=== PATIENT | male | born 1960 | race Two or more races ===

== ENCOUNTER 2016-07-16 15:10 | Inpatient (IN) ==
--- NOTE | 2016-07-16 15:31 | EKG Report ---
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
[2016-07-16] MEDS ORDERED: SODIUM CHLORIDE 0.9% 1,000 ML IV STA (15:38)
[2016-07-16] MEDS ORDERED: NITROGLYCERIN SL 0.4 MG TABLET SL STA (15:39)
[2016-07-16] MEDS ORDERED: ASPIRIN 325 MG TABLET PO STA (15:39)
[2016-07-16] MEDS ORDERED: ASPIRIN 325 MG TABLET ONE (15:40)
[2016-07-16 15:44] LABS: Basophils # 0.1 10*3/uL (0.0-0.2); Basophils % 0.5 % (0.0-0.8); Eosinophils # 0.1 10*3/uL (0.0-0.87); Eosinophils % 0.7 % (0.00-10.9); Hematocrit 47.5 VOL% (42.0-52.0); Hemoglobin 15.9 GM/DL (14.0-18.0); Immature Granulocytes % 0.5 %; Immature Granulocytes Absolute 0.06 #; Lymphocytes # 2.4 10*3/uL (1.4-4.0); Lymphocytes % 19.7 % (21.2-54.2); Mean Corpuscular HGB Conc 33.5 GM/DL (32-36); Mean Corpuscular Hemoglobin 31 PG (27-34); Monocytes # 0.8 10*3/uL (0.11-0.8); Monocytes % 6.6 % (1.7-12.7); Neutrophils # 8.9 10*3/uL (1.4-7.4); Platelet Count 262 T/CUMM (130-400); Red Blood Count 5.11 MC/CUMM (3.8-5.5); Red Cell Distribution Width 13.7 % (9.3-17.3); White Blood Count 12.3 T/CUMM (4-12)
[2016-07-16] MEDS ORDERED: NITROGLYCERIN SL 0.4 MG TABLET SL PRN (15:45)
[2016-07-16] MEDS ORDERED: NITROGLYCERIN SL 0.4 MG TABLET SL ONE ×2 (15:47→15:48)
[2016-07-16 15:50] LABS: INR 1.1; PT Patient Result 11.2 SECS; Partial Thromboplastin Time 26.1 SECS (0-40)
[2016-07-16] MEDS ORDERED: METOPROLOL TARTRATE 5 MG/5 ML VIAL IV ONE (15:50)
[2016-07-16] MEDS ORDERED: HEPARIN 5,000 UNIT/1 ML VIAL ONE (15:51)
--- NOTE | 2016-07-16 15:54 | Emergency Department Note ---
Merrick Goncalves Hilary, am scribing for, and in the presence of, Jose Stacy Jr., MD 15:29. Regis Goncalves Marvin Jr., MD, personally performed the services described in this documentation, ascribed by Nichelle Sin in my presence, and it is both accurate and complete [id number] . Arrival - Arrival Chief Complaint: Chest Pain Stated Complaint: chest pain ED Nursing Triage Note: C/O HAVING CHEST PAIN X 1 HOUR., + SOB , +NAUSEA., + DIAPHRESIS , STATES THE PAIN IS RADIATING TO THE ARMS AND THE NECK , EKG OBTAINED AT TIME OF TRIAGE Mode of Arrival: Ambulatory Limitations: No Limitations Source: Patient, RN Notes Reviewed - History of Present Illness HPI Narrative: Pt is a 56 y/o male presenting to the ED with c/o chest pain which onset around 1330 today. Pt reports that he just finished eating and went to the bathroom when he started to feel chest pains, nausea, shortness of breath and sweating. He states that the pain comes and goes but is a severe stabbing pain that he cant tell whether it is inside our outside. Pt confirms that he has not been to the doctor in about 3 years. No other complaints or problems stated in the ED. Onset (ago): hour(s) Consistency: intermittent Severity: severe Severity scale (1-10): 4 Quality: stabbing Allergies/Adverse Reactions: Allergies Allergy/AdvReac Type Severity Reaction Status Date / Time Penicillins Allergy Unknown/Unable Verified 07/16/16 15:14 to obtain Home Medications: Home Medications Medication Instructions Recorded Confirmed Type No Known Home Medications [No 10/01/15 07/16/16 History Known Home Medications] Review of System - Review of System 12 point system: reviewed and no additional remarkable complaints except as stated - Review of System Constitutional: Present: diaphoresis Respiratory: Present: respiratory distress (SOB) Cardiovascular: Present: chest pain Gastrointestinal: Present: nausea Medical,Surgical,& Family Hx - Social History Smoking Status: Never smoker Frequency of Alcohol Use: Occasionally Type of Drug Use: None Exam Physical Examination: General: Well-developed well-nourished, no apparent distress. Head: Normocephalic, atraumatic. Eyes: PERRLA, EOMI. Nose: No obvious acute deformities or discharge. Mouth: No obvious acute injury. Neck: Full range of motion without obvious pain. No midline tender to palpation. Lymphatic: no significant lymphadenopathy noted. Lungs: Clear to auscultation bilaterally, normal and equal air movement bilaterally, no obvious rales or wheezing. Heart: regular rate and rhythm, no obvious mummers. Abdomen: Soft nontender, nondistended, normal active bowel sounds. Skin: Cool, moist, patient says this is much better than a little bit ago Musculoskeletal: No gross deformities. Neurological: No focal findings, cranial nerves II through XII grossly normal. Psychiatric: Anxious : Deferred Vital Signs: Vital Signs Temperature 98.1 F 07/16/16 15:27 Pulse Rate 82 07/16/16 15:27 Respiratory Rate 20 07/16/16 15:27 Blood Pressure 183/127 07/16/16 15:27 O2 Sat by Pulse Oximetry 100 07/16/16 15:12 Course Course Narrative: Differential diagnosis, acute IA, chest pain - Reevaluation(s) Reevaluation #1: I called Dr. Rivera and texted him the EKG. He call back right away and says this EKG although not meeting criteria for ST elevation IA is very suggestive of ischemia. He will take him to the [facility] now. Time: 15:30 Results - Labs CBC & BMP: 07/16/16 15:23 - EKG EKG results: interpreted by BERTRAND (Heart rate 88, irregular rhythm with no obvious P waves. ST elevation in anterior and lateral leads consistent with early repolarization but worrisome for acute IA. No reciprocal changes) - Diagnostic Findings Procedure: Chest x-ray: image reviewed by me (Mediastinum not widened, mild cardiomegaly,) Critical Care Time Critical Care Time: Yes Total Critical Care Time: 30 (Acute IA) Disposition Clinical Impression: ST elevation IA (STEMI), Elevated blood pressure reading Case discussed with: patient, patient's family Disposition: Still a Patient Condition: Stable Time of Disposition: 15:38
[2016-07-16] MEDS ORDERED: HEPARIN/NACL 0.9% 2 UNITS/ML 1,000 ML IV ONE (15:55)
[2016-07-16] MEDS ORDERED: LIDOCAINE 1% 20 ML VIAL ONE (15:55)
[2016-07-16 16:01] LABS: Alanine Aminotransferase 46 U/L (16-61); Albumin 3.8 G/DL (3.4-5.0); Alkaline Phosphatase 78 U/L (45-117); Aspartate Amino Transferase 30 U/L (0-37); Blood Urea Nitrogen 9 MG/DL (7-18); Glucose 125 MG/DL (74-106); Magnesium 1.9 MG/DL (1.8-2.4); Osmolality,Calculated 285.8 MOS/KG (273-304); Potassium 4.2 MMOL/L (3.5-5.1); Sodium 144 MMOL/L (136-145); Total Protein 7.3 G/DL (6.4-8.3)
[2016-07-16] MEDS ORDERED: fentaNYL 100 MCG/2 ML VIAL ONE (16:07)
[2016-07-16] MEDS ORDERED: MIDAZOLAM 2 MG/2 ML VIAL ONE (16:07)
[2016-07-16] MEDS ORDERED: HEPARIN 1,000 UNIT/1 ML VIAL IV STA (16:10)
[2016-07-16] MEDS ORDERED: NITROGLYCERIN DRIP 50 MG/250 ML BOTTLE IV ONE (16:10)
[2016-07-16] MEDS ORDERED: METOPROLOL TARTRATE 5 MG/5 ML VIAL IV STA (16:10)
[2016-07-16] MEDS ORDERED: VERAPAMIL 5 MG/2 ML VIAL ONE (16:11)
[2016-07-16] MEDS ORDERED: ONDANSETRON 4 MG/2 ML VIAL IV PRN ×2 (16:28)
[2016-07-16] MEDS ORDERED: MAGNESIUM SULF RIDER 4 GM in PREMIX 1 EACH IV PRN (16:28)
[2016-07-16] MEDS ORDERED: MAGNESIUM SULF RIDER 2 GM in PREMIX 1 EACH IV PRN (16:28)
[2016-07-16] MEDS ORDERED: ACETAMINOPHEN 325 MG TABLET PO PRN (16:28)
[2016-07-16] MEDS ORDERED: ZALEPLON 5 MG CAPSULE PO PRN ×2 (16:28)
[2016-07-16] MEDS ORDERED: POTASSIUM CHLORIDE 20 MEQ TABLET PO ONE (16:35)
[2016-07-16] MEDS ORDERED: FUROSEMIDE 40 MG/4 ML VIAL IV ONE (16:35)
--- NOTE | 2016-07-16 16:35 | XRay Report ---
Exam: XR chest 1V portable Indication: Midline chest pain, cardiomegaly Comparison study: None Findings: Cardiac silhouette is mildly enlarged. There is also mild central perihilar interstitial prominence which is of uncertain significance but may represent underlying scarring changes or atelectasis. Punctate subcentimeter calcific nodular densities in the perihilar regions are also noted and most compatible with sequela of prior granulomatous disease. There is no focal consolidation, pneumothorax or pleural effusion identified. Impression: Cardiomegaly with suggestion of underlying interstitial scarring versus atelectasis and evidence of prior granulomatous disease. PROCEDURE INTERPRETED AT [facility] DEPARTMENT OF RADIOLOGY Final Report Signed by: Jose L Estevez
--- NOTE | 2016-07-16 16:37 | History and Physical Update ---
Sedation H&P Update - History and Physical H&P was reviewed, the patient examined and there: are no changes in the patients condition since last H&P was completed. - Dictation Physical: refer to H&P completed by admitting physician - Physical Exam Mental Status: alert and oriented Heart: regular rate and rhythm Lung: clear to auscultation Abdomen: within normal limits Vitals: other (Severely uncontrolled blood pressure) - Sedation Plan for Sedation: moderate Patient Consent: Procedure disscussed with patient and patinet has consented., Risks and benefits were discussed with patient,including infection,, bleeding, injury to surrounding structures, seizure, temporary nerve, Patient understands and accepts potential risks/benefits and agrees to, proceed. ASA Class: IV Airway Assessment: Class IV: Only hard palate visible
--- NOTE | 2016-07-16 16:41 | Cardiology History & Physical ---
Assessment and Plan - Time spent with patient Time spent with patient: Less than 30 minutes (1) ST elevation Status: Acute Current Visit: Yes (2) Hypertensive emergency Status: Acute Current Visit: Yes (3) Morbid exogenous obesity Status: Chronic Current Visit: Yes History of Present Illness Chief complaint: Chest pain History of present illness: Mr. Aviles is a 56 year old male who claims no past medical history. He even states that he checks his blood pressure on a frequent basis at the request of his family and friends because he "has to have blood pressure problems." He states it is always good. He has had a headache and been feeling poor now for the last week. Today he was eating at a friend's house felt like he had to go to the restroom he went up went to the restroom after weighing the restroom, "BOOM" severe 10 out of 10 chest pressure with diaphoresis and nausea. It escalated and was 10 out of 10 he came to the emergency room was found to have severely uncontrolled blood pressure had an EKG was sent to me by Dr. Stacy that had anterolateral ST elevation that was less than a millimeter but had severe con convexity to the morphology of the ST segments. He was given nitroglycerin and helped his pain significantly was also given aspirin. I arrived saw examined and evaluated the patient at risk benefits and options discussed with him he was willing to proceed. We gave him 7000 units of intravenous heparin and went emergently for left heart catheterization selective coronary angiography and possible percutaneous coronary mention with a right radial access. He has disease as described in his cath report. Is very difficult imaging due to body habitus. The patient's pain was down to 2 out of 10 his blood pressure remained elevated. We used minimal contrast he had a markedly elevated left ventricular end-diastolic pressure of 30 mmHg his cardiac silhouette was enlarged look like he was primarily right-sided. We will monitor in the ICU and get CT scan of the chest today. We will also get venous Dopplers Home Medications Medication Instructions Recorded Confirmed Type No Known Home Medications [No 10/01/15 07/16/16 History Known Home Medications] Allergies Allergy/AdvReac Type Severity Reaction Status Date / Time Penicillins Allergy Unknown/Unable Verified 07/16/16 15:14 to obtain - Constitutional Constitutional: Present: fatigue, lethargy, malaise, stops breathing during sleep, weight gain. Absent: anorexia, chills - EENT Eyes: Present: blurry vision Ears: Absent: decreased hearing Nose, mouth and throat: Absent: dysphagia, epistaxis, lip swelling, nasal congestion - Cardiovascular Cardiovascular: Present: chest pain at rest, dyspnea on exertion. Absent: chest pain with activity - Respiratory Respiratory: Present: dyspnea on exertion, snoring - Gastrointestinal Gastrointestinal: Absent: abdominal pain, bloating - Genitourinary Genitourinary: Absent: difficulty urinating, hematuria - Musculoskeletal Musculoskeletal: Absent: arthralgias, joint swelling - Neurological Neurological: Absent: abnormal gait, disequilibrium, paresthesias, radicular pain - Psychiatric Psychiatric: Absent: anxiety, depression - Endocrine Endocrine: Absent: cold intolerance, heat intolerance - Hematologic/Lymphatic Hematologic/Lymphatic: Absent: easy bleeding, easy bruising Medical,Surgical,& Family Hx - Social History Smoking Status: Never smoker Frequency of Alcohol Use: Occasionally Type of Drug Use: None Marital Status: Lives With:: Alone Functional capacity: independent ambulation (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[employer]) Cardiology Physical Exam - Constitutional Vitals: Vital Signs Temp Pulse Resp BP Pulse Ox 98.1 F 82 20 183/127 100 07/16/16 15:27 07/16/16 15:27 07/16/16 15:27 07/16/16 15:27 07/16/16 15:12 Intake and Output 07/16/16 07/16/16 07/16/16 07:59 15:59 23:59 Other: Weight 145.15 kg Patient Weight 07/16/16 23:59 Weight 145.15 kg General appearance: morbidly obese - Head Head exam: Present: normal inspection - Eye Eye exam: Present: EOMI Pupils: Present: ROSA M - ENT ENT exam: Present: other (ASA IV airway) - Respiratory Respiratory exam: Present: clear to auscultation bilaterally - Cardiovascular Cardiovascular exam: Present: regular rate and rhythm (Tones very distant indistinct) - GI/Abdominal GI/Abdominal exam: Present: normal bowel sounds - Neurological Exam Neurological exam: Present: alert, oriented X3 - Psychiatric Psychiatric exam: Present: normal affect, normal mood, anxious - Skin Skin exam: Present: normal color, warm Result/EKG - Labs CBC & BMP: 07/16/16 15:23 07/16/16 15:23 Labs: Laboratory Results - last 24 hr 07/16/16 07/16/16 07/16/16 15:23 15:23 15:23 WBC 12.3 H RBC 5.11 Hgb 15.9 Hct 47.5 MCV 93.0 MCH 31 MCHC 33.5 RDW 13.7 Plt Count 262 MPV 12.0 Neut % (Auto) 72.0 Lymph % (Auto) 19.7 L [place] % (Auto) 6.6 Eos % (Auto) 0.7 Baso % (Auto) 0.5 Neut # (Auto) 8.9 H Lymph # (Auto) 2.4 [place] # (Auto) 0.8 Eos # (Auto) 0.1 Baso # (Auto) 0.1 Immature Gran % 0.5 Nucleated RBC % 0.0 Immature Gran # 0.06 Nucleated RBCs # 0.00 INR 1.1 PT Patient/Control Mix 11.2 Circ Anticoag PTT 26.1 Sodium 144 Potassium 4.2 Chloride 105 Carbon Dioxide 30 Anion Gap 13.2 BUN 9 Creatinine 1.00 GFR Calculation 126 BUN/Creatinine Ratio 9.00 Glucose 125 H Calculated Osmolality 285.8 Calcium 9.0 Magnesium 1.9 Total Bilirubin 0.60 AST 30 ALT 46 Alkaline Phosphatase 78 Total Creatine Kinase 202 CK-MB (CK-2) 1.3 Troponin I 0.070 H Total Protein 7.3 Albumin 3.8 Globulin 3.5 Albumin/Globulin Ratio 1.0 L - EKG EKG results: interpreted by me (Sinus rhythm with APCs and ST elevation with con convexity in the anterolateral leads V1 through V6 suggestive of injury) Quality Measures - VTE Contraindication to Pharmacological VTE Prophylaxis: Already on Theraputic Agent , No Prophylaxis Needed
--- NOTE | 2016-07-16 16:50 | Cardiac Catheterization ---
Date of Procedure:: 07/16/16 Pre-op Diagnosis: ST elevation myocardial infarction Post-op diagnosis: other (Hypertensive emergency and moderate two-vessel coronary artery disease, decompensated heart failure, obstructive sleep apnea) Procedure: Procedures: 1. Left heart catheterization resting hemodynamics 2. Selective left and right coronary angiography After signed an informed consent was obtained, the patient was prepped and draped in standard fashion for right radial access. Time out was recorded. 0.5 mL of 1% lidocaine were infiltrated in the skin and subcutaneous tissue overlying the right radial artery and Seldinger technique was utilized with a Angiocath to obtain access to the right radial artery. A [employer] glide wire was then advanced into the midforearm under fluoroscopic guidance. The Angiocath was removed and a 6 Egyptian Terumo glide sheath was placed over the Glidewire. The sheath was aspirated and flushed and then 5 mg of verapamil and 200 g of nitroglycerin were given through the sheath. At this time an 035 J-wire was used to guide a [place] 6 Egyptian catheter into the central aorta across the aortic valve and into the ventricle. A 10 mL injection of contrast was used for ventriculography in the HAGAN projection. Pressure measurements and pullback measurements were obtained. The [place] catheter was then used to engage the left main coronary artery and multiple orthogonal views of the left system were obtained. The catheter then was torqued into the right coronary artery and orthogonal views of the right system were obtained. The catheter was then exchanged over the wire. The sheath was aspirated and flushed. The central control room operator reviewed the films. And a TR band was placed over the glide sheath and used for hemostasis. Total contrast exposure 40 cc of omnipaque Total x-ray exposure: 2.4 min fluoroscopy time and 761 mGy air Kerma Findings: 1. EF not assessed 2. Hemodynamics LV: 151/29 EDP:30 Ao:155/105 3. Left main: Angiographically normal very large 4: Left anterior descending artery: This is a very large vessel that reaches the apex of ventricular myocardium and also a sense inferior intraventricular septum acting as a PDA. There is diffuse moderate to severe disease in the vessel just before reaching the apex of the ventricle. There is 2 very small heavily diseased diagonals D1 and D2 have 70-80% diffuse disease. These are too small for intervention. 5: Left circumflex artery: This is a very large vessel that gives rise to an extremely large first obtuse marginal has approximately 70% ostial first obtuse marginal stenosis. This supplies majority of the lateral ventricular myocardium. The circumflex does not reach the distribution of the PDA it is not dominant but neither is the right. The PDA distribution is supplied by a very large LAD. 6: Right coronary artery: Small nondominant vessel no high-grade epicardial stenosis Assessment: 1. Moderate range disease in the distal LAD and the ostial first obtuse marginal with high-grade stenosis in 2 small diagonal arteries 2. Uncontrolled blood pressure and elevated left ventricular end-diastolic pressure of 30 mmHg Plan: 1. Therapeutic lifestyle changes. 2. Blood pressure control 3. CT PE protocol the chest to rule out aortic complications and possible pulmonary embolism along with venous Dopplers 4. Risk factor modification 5. Consult Dr. Velazquez for evaluation of obstructive sleep apnea the patient was obstructed with minimal sedation 6. Weight loss 7. Monitor in the ICU. Implants: None Anesthesia: moderate conscious sedation Surgeon / Physician: Lauren Patricio Belt Turner: none Estimated blood loss: none Specimens: none sent Condition: stable Disposition: floor - Medications / Follow-up
--- NOTE | 2016-07-16 17:44 | CT Report ---
Exam: CT chest PE study The total DLP is 1348 mGy*cm. Date: 07/16/2016 4:44 PM Indication: Noncardiac chest pain Comparison: Chest radiograph 07/16/2016 negative venous Doppler 07/16/2016 Technical: Images were obtained from the thoracic inlet through the lung bases with 80 cc of Omnipaque 350 with axial and coronal imaging available for review. Dose reduction: This CT exam was performed using one or more of the following dose reduction techniques: Automated exposure control, automated adjustment of the mA and/or KV according to patient size, or use of iterative reconstruction technique. Findings: Pulmonary arteries:Pulmonary arteries are patent and well-opacified with no filling defects to suggest pulmonary emboli. Distal segmental/subsegmental pulmonary arteries are poorly evaluated due to contrast bolus timing and/or patient motion. Mediastinum/vessels/lymph nodes: Heart and great vessels appear unremarkable. There is no evidence of pericardial effusion. The aorta and great vessels appear widely patent. There is no adenopathy in the chest. Lungs: Minimal posterior basilar and lingular atelectatic changes are noted. Otherwise, the lungs are predominantly clear. There is no pneumothorax or pleural effusion. There is no focal consolidation. No suspicious pulmonary nodules or masses are identified. Thyroid: Thyroid gland appears within normal limits. No acute abnormality is identified within the visualized upper abdomen. BONES: No acute or suspicious appearing osseous abnormalities are identified. Impression: 1. No evidence of acute pulmonary emboli. 2. No other acute abnormality within the chest or upper abdomen to explain patient's symptoms. PROCEDURE INTERPRETED AT [facility] DEPARTMENT OF RADIOLOGY Final Report Signed by: Jose L Estevez
--- NOTE | 2016-07-16 17:45 | Ultrasound Report ---
Indication: Noncardiac chest pain Duplex scan of the bilateral lower extremity veins Technique: Duplex scan of the bilateral lower extremity veins using B-mode/grayscale imaging and Doppler spectral analysis and color flow Findings: Major venous structures of the bilateral lower extremity demonstrate a normal course and caliber. There is no evidence of deep vein thrombosis. No abnormal intrinsic echogenic lesions are demonstrated in the scanned blood vessels. Veins demonstrate good compressibility with normal color flow study and spectral analysis. Impression: Unremarkable duplex imaging of the bilateral lower extremity veins. No evidence of DVT PROCEDURE INTERPRETED AT [facility] DEPARTMENT OF RADIOLOGY Final Report Signed by: Jose L Estevez
[2016-07-16] MEDS: LISINOPRIL 10 MG TABLET PO SCH (18:09)
[2016-07-16] MEDS: hydrALAZINE 20 MG/1 ML VIAL IV PRN (18:15)
[2016-07-16 18:22] LABS: ABG Base Excess 2.3 MMOL/L (-2.5-2.5); ABG HCO3 26.4 MMOL/L (20-26); ABG Oxygen Saturation 97.9 % (95-100); ABG PCO2 46.7 MM HG (35-48); ABG PH 7.387 (7.35-7.45); ABG TCO2 24.1 MMOL/L (23-27)
[2016-07-16] MEDS ORDERED: CARVEDILOL 6.25 MG TABLET PO ONE (20:00)
[2016-07-16] MEDS ORDERED: amLODIPine 10 MG TABLET PO ONE (20:47)
[2016-07-16] MEDS: CARVEDILOL 6.25 MG TABLET PO SCH (21:24)
[2016-07-16] MEDS: FAMOTIDINE 20 MG TABLET PO SCH (21:29)
[2016-07-16] MEDS: ATORVASTATIN 40 MG TABLET PO SCH (21:29)
[2016-07-17] MEDS: hydrALAZINE 20 MG/1 ML VIAL IV PRN (00:11)
[2016-07-17 04:34] LABS: Basophils % 0.3 % (0.0-0.8); Eosinophils # 0.1 10*3/uL (0.0-0.87); Eosinophils % 0.5 % (0.00-10.9); Hematocrit 43.7 VOL% (42.0-52.0); Hemoglobin 14.6 GM/DL (14.0-18.0); Immature Granulocytes % 0.4 %; Immature Granulocytes Absolute 0.05 #; Lymphocytes # 1.6 10*3/uL (1.4-4.0); Lymphocytes % 12.8 % (21.2-54.2); Mean Corpuscular HGB Conc 33.4 GM/DL (32-36); Mean Corpuscular Hemoglobin 31 PG (27-34); Mean Corpuscular Volume 91.8 FL (87-102); Mean Platelet Volume 11.8 FL (9.6-12.0); Monocytes # 0.8 10*3/uL (0.11-0.8); Monocytes % 6.9 % (1.7-12.7); Neutrophils # 9.6 10*3/uL (1.4-7.4); Neutrophils % 79.1 % (38.7-73.9); Platelet Count 252 T/CUMM (130-400); Red Blood Count 4.76 MC/CUMM (3.8-5.5); Red Cell Distribution Width 13.9 % (9.3-17.3); White Blood Count 12.1 T/CUMM (4-12)
[2016-07-17 05:25] LABS: Potassium 3.9 MMOL/L (3.5-5.1); Risk Ratio 3.94; Thyroid Stimulating Hormone 1.78 uIU/ml (0.358-3.74)
--- NOTE | 2016-07-17 05:49 | EKG Report ---
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
[2016-07-17] MEDS ORDERED: CLOPIDOGREL 300 MG TABLET PO ONE (06:39)
[2016-07-17] MEDS: CARVEDILOL 6.25 MG TABLET PO SCH ×2 (09:06→22:29)
[2016-07-17] MEDS: RIVAROXABAN 20 MG TABLET PO SCH (09:06)
[2016-07-17] MEDS: ASPIRIN EC 81 MG TABLET PO SCH (09:06)
[2016-07-17] MEDS: PANTOPRAZOLE 40 MG TABLET PO SCH (09:06)
[2016-07-17] MEDS: LISINOPRIL 10 MG TABLET PO SCH (09:06)
[2016-07-17] MEDS: FAMOTIDINE 20 MG TABLET PO SCH ×2 (09:06→22:29)
--- NOTE | 2016-07-17 09:34 | Cardiology Progress Note ---
Assessment and Plan - Time spent with patient Time spent with patient: Greater than 30 minutes (1) Dyslipidemia Status: Chronic Assessment and plan: SEE PLAN OF CARE LISTED BELOW Current Visit: Yes (2) Sleep disorder Status: Chronic Assessment and plan: SEE PLAN OF CARE LISTED BELOW Current Visit: Yes (3) Atrial fibrillation Status: Acute Assessment and plan: SEE PLAN OF CARE LISTED BELOW Current Visit: Yes (4) Hypertensive emergency Status: Acute Assessment and plan: SEE PLAN OF CARE LISTED BELOW Current Visit: Yes (5) ST elevation IN (STEMI) Status: Resolved Assessment and plan: SEE PLAN OF CARE LISTED BELOW Current Visit: Yes (6) Morbid exogenous obesity Status: Chronic Assessment and plan: SEE PLAN OF CARE LISTED BELOW Current Visit: Yes Cardiology - PN: Subj Interval history: GUEST ROOM INSPECTOR (NEW) DR. NAIK SUMMARY: Mr. Aviles, 56M, presented to the ER July 14, 2016 with anterolateral STEMI. Underwent emergent LHC, performed by Dr. Naik, which revealed the following impression: Findings: 1. EF not assessed 2. Hemodynamics LV: 151/29 EDP:30 Ao:155/105 3. Left main: Angiographically normal very large 4: Left anterior descending artery: This is a very large vessel that reaches the apex of ventricular myocardium and also a sense inferior intraventricular septum acting as a PDA. There is diffuse moderate to severe disease in the vessel just before reaching the apex of the ventricle. There is 2 very small heavily diseased diagonals D1 and D2 have 70-80% diffuse disease. These are too small for intervention. 5: Left circumflex artery: This is a very large vessel that gives rise to an extremely large first obtuse marginal has approximately 70% ostial first obtuse marginal stenosis. This supplies majority of the lateral ventricular myocardium. The circumflex does not reach the distribution of the PDA it is not dominant but neither is the right. The PDA distribution is supplied by a very large LAD. 6: Right coronary artery: Small nondominant vessel no high-grade epicardial stenosis Assessment: 1. Moderate range disease in the distal LAD and the ostial first obtuse marginal with high-grade stenosis in 2 small diagonal arteries 2. Uncontrolled blood pressure and elevated left ventricular end-diastolic pressure of 30 mmHg JULY 17, 2016: Troponin increased to 15.1 last evening, this morning it is trending down to 14.5. I will add a CPK and CK-MB to the labs today per Dr. Ahumada's request. CT chest revealed no evidence of PE or acute abnormality. Venous Dopplers reveals no DVT. Echocardiogram has been ordered and results pending. Blood pressure remains uncontrolled. I will ask that manual blood pressures be checked rather than automatic blood pressures. Currently using a wrist, automatic blood pressure cuff and will check for correlation. Increasing ALEXANDER inhibitor this morning. Monitoring labs routinely. Consult to sleep medicine has been performed. Patient denies chest pain but does acknowledge chronic shortness of breath. We will transition patient to telemetry with anticipation of possible discharge tomorrow or when blood pressure is better controlled. Will further discuss with Dr. Ahumada and await additional recommendations. ASSESSMENT/PLAN: 1. STEMI - Troponin elevated and decreasing at this time. Continuing to monitor. Cardiac rehab has been consulted. 2. HYPERTENSION - increasing Lisinopril (giving an additional Lisinopril 10mg now). BMP in the morning. 3. DYSLIPIDEMIA - continuing lipid lowering agent. LDL 93 however, given the moderate CAD noted, will continue lipid lowering agent. 4. ATRIAL FIBRILLATION - new diagnosis. Rate controlled. Continue NOAC. 5. MORBID OBESITY - Dietary counseling ensued. 6. SLEEP DISORDER - Concerning for sleep apnea. Dr. Velazquez has been consulted. 7. CAD, MODERATE - continue current plan of care. Exam (Progress Note) - Constitutional Vitals: Period Temp Pulse Resp BP Sys/Vincent Pulse Ox Last 24 Hr 96.9 F-98.8 F 61-107 10-29 129-189/67-139 91-100 Exam: General: [Appears well with no apparent distress.] [Pleasant and cooperative. ] [Appears comfortable.] HEENT: [PERRL, normocephalic, atraumatic. Mucous membranes moist. No jaundice noted. Conjunctiva moist and clear, sclerae anicteric] Neck: Difficult to assess for JVD due to habitus. No thyromegaly or lymphadenopathy noted. No carotid bruit appreciated PMI is nondisplaced. Lungs: [Clear to auscultation without accessory muscle use to assist the respiratory pattern.] Not requiring oxygen. Abdomen: Soft, bowel sounds normoactive. Nontender and nondistended. No abdominal bruit or thrill noted. No masses noted. Musculoskeletal: No fluid collection. Decreased range of motion is noted. Extremities: Right wrist, free of hematoma. Radial pulses 2+. Capillary refill brisk. No clubbing, cyanosis noted. [ No edema noted.] Lower extremity pulses 2+. Capillary refill less than 3 seconds. Skin: No unusual lesions or rashes. No skin breakdown appreciated. Neuro: Awake, alert and oriented 3. Moves all extremities well without hemiparesis or paralysis. No essential tremor is appreciated. Result/EKG - Labs CBC & BMP: 07/17/16 04:19 07/17/16 04:19 Lab Results: I have reviewed the past 24 hour labs Labs: Laboratory Results - last 24 hr 07/16/16 07/16/16 07/16/16 15:23 15:23 15:23 WBC 12.3 H RBC 5.11 Hgb 15.9 Hct 47.5 MCV 93.0 MCH 31 MCHC 33.5 RDW 13.7 Plt Count 262 MPV 12.0 Neut % (Auto) 72.0 Lymph % (Auto) 19.7 L [place] % (Auto) 6.6 Eos % (Auto) 0.7 Baso % (Auto) 0.5 Neut # (Auto) 8.9 H Lymph # (Auto) 2.4 [place] # (Auto) 0.8 Eos # (Auto) 0.1 Baso # (Auto) 0.1 Immature Gran % 0.5 Nucleated RBC % 0.0 Immature Gran # 0.06 Nucleated RBCs # 0.00 INR 1.1 PT Patient/Control Mix 11.2 Circ Anticoag PTT 26.1 ABG pH ABG pCO2 ABG pO2 ABG HCO3 ABG Total CO2 ABG O2 Saturation ABG Base Excess Sodium 144 Potassium 4.2 Chloride 105 Carbon Dioxide 30 Anion Gap 13.2 BUN 9 Creatinine 1.00 GFR Calculation 126 BUN/Creatinine Ratio 9.00 Glucose 125 H Hemoglobin A1c Calculated Osmolality 285.8 Calcium 9.0 Magnesium 1.9 Total Bilirubin 0.60 AST 30 ALT 46 Alkaline Phosphatase 78 Total Creatine Kinase 202 CK-MB (CK-2) 1.3 Troponin I 0.070 H Total Protein 7.3 Albumin 3.8 Globulin 3.5 Albumin/Globulin Ratio 1.0 L Triglycerides Cholesterol LDL Cholesterol VLDL Cholesterol HDL Cholesterol Heart Disease Risk Ratio TSH 3rd Generation Blood Type Antibody Screen 07/16/16 07/16/16 07/16/16 15:23 17:04 18:00 WBC RBC Hgb Hct MCV MCH MCHC RDW Plt Count MPV Neut % (Auto) Lymph % (Auto) [place] % (Auto) Eos % (Auto) Baso % (Auto) Neut # (Auto) Lymph # (Auto) [place] # (Auto) Eos # (Auto) Baso # (Auto) Immature Gran % Nucleated RBC % Immature Gran # Nucleated RBCs # INR PT Patient/Control Mix Circ Anticoag PTT ABG pH 7.387 ABG pCO2 46.7 ABG pO2 104.0 H ABG HCO3 26.4 H ABG Total CO2 24.1 ABG O2 Saturation 97.9 ABG Base Excess 2.3 Sodium Potassium Chloride Carbon Dioxide Anion Gap BUN Creatinine GFR Calculation BUN/Creatinine Ratio Glucose Hemoglobin A1c Calculated Osmolality Calcium Magnesium Total Bilirubin AST ALT Alkaline Phosphatase Total Creatine Kinase CK-MB (CK-2) Troponin I 0.168 H D Total Protein Albumin Globulin Albumin/Globulin Ratio Triglycerides Cholesterol LDL Cholesterol VLDL Cholesterol HDL Cholesterol Heart Disease Risk Ratio TSH 3rd Generation Blood Type O POSITIVE Antibody Screen Negative 07/16/16 07/16/16 07/16/16 19:40 23:07 Unknown WBC RBC Hgb Hct MCV MCH MCHC RDW Plt Count MPV Neut % (Auto) Lymph % (Auto) [place] % (Auto) Eos % (Auto) Baso % (Auto) Neut # (Auto) Lymph # (Auto) [place] # (Auto) Eos # (Auto) Baso # (Auto) Immature Gran % Nucleated RBC % Immature Gran # Nucleated RBCs # INR PT Patient/Control Mix Circ Anticoag PTT ABG pH ABG pCO2 ABG pO2 ABG HCO3 ABG Total CO2 ABG O2 Saturation ABG Base Excess Sodium Potassium Chloride Carbon Dioxide Anion Gap BUN Creatinine GFR Calculation BUN/Creatinine Ratio Glucose Hemoglobin A1c 6.4 H Calculated Osmolality Calcium Magnesium Total Bilirubin AST ALT Alkaline Phosphatase Total Creatine Kinase CK-MB (CK-2) Troponin I 4.720 H D 15.100 H D Total Protein Albumin Globulin Albumin/Globulin Ratio Triglycerides Cholesterol LDL Cholesterol VLDL Cholesterol HDL Cholesterol Heart Disease Risk Ratio TSH 3rd Generation Blood Type Antibody Screen 07/17/16 07/17/16 07/17/16 04:19 04:19 07:51 WBC 12.1 H RBC 4.76 Hgb 14.6 Hct 43.7 MCV 91.8 MCH 31 MCHC 33.4 RDW 13.9 Plt Count 252 MPV 11.8 Neut % (Auto) 79.1 H Lymph % (Auto) 12.8 L [place] % (Auto) 6.9 Eos % (Auto) 0.5 Baso % (Auto) 0.3 Neut # (Auto) 9.6 H Lymph # (Auto) 1.6 [place] # (Auto) 0.8 Eos # (Auto) 0.1 Baso # (Auto) 0.0 Immature Gran % 0.4 Nucleated RBC % 0.0 Immature Gran # 0.05 Nucleated RBCs # 0.00 INR PT Patient/Control Mix Circ Anticoag PTT ABG pH ABG pCO2 ABG pO2 ABG HCO3 ABG Total CO2 ABG O2 Saturation ABG Base Excess Sodium 143 Potassium 3.9 Chloride 107 Carbon Dioxide 27 Anion Gap 12.9 BUN 9 Creatinine 0.80 GFR Calculation 148 BUN/Creatinine Ratio 11.00 Glucose 120 H Hemoglobin A1c Calculated Osmolality 284.0 Calcium 9.0 Magnesium Total Bilirubin AST ALT Alkaline Phosphatase Total Creatine Kinase CK-MB (CK-2) Troponin I 14.500 H Total Protein Albumin Globulin Albumin/Globulin Ratio Triglycerides 75 Cholesterol 126 LDL Cholesterol 93.0 VLDL Cholesterol 15.0 HDL Cholesterol 32 L Heart Disease Risk Ratio 3.94 TSH 3rd Generation 1.780 Blood Type Antibody Screen - Diagnostic Findings Procedure: Chest x-ray: report reviewed by me - EKG EKG results: interpreted by me EKG shows: atrial fibrillation Quality Measures - VTE Contraindication to Pharmacological VTE Prophylaxis: Already on Theraputic Agent , No Prophylaxis Needed Specialty Discharge - Follow Up or Referrals
--- NOTE | 2016-07-17 09:39 | EKG Report ---
Stationary ECG Study [facility] Test Date: 07/17/2016 5:59:24 AM Pat Name: JUSTIN KIRBY Department: Room: 123 Gender: M Post Framer: : [id number] Requested by: Nicole Mercado Order Number: [id number] Reading MD: RICHIE GONZALEZ Intervals [place] Rate: 99 P: 999 [place]: 0 QRS: 94 QRSD: 121 T: 29 QT: 388 QTc: 444 Interpretive Statements ATRIAL FIBRILLATION WITH ABERRANT CONDUCTION OR VENTRICULAR PREMATURE COMPLEXES BORDERLINE RIGHT AXIS DEVIATION MODERATE INTRAVENTRICULAR CONDUCTION DELAY NONSPECIFIC T-WAVE ABNORMALITY ABNORMAL RHYTHM ECG Electronically Signed On 07-18-16 12:54:06 CDT by RICHIE GONZALEZ [email or web address]
[2016-07-17] MEDS ORDERED: LISINOPRIL 10 MG TABLET PO ONE (09:55)
[2016-07-17 10:58] LABS: CKMB % 6.7 %
[2016-07-17 10:59] LABS: Troponin I Only 12.1 NG/ML (0.00-0.045)
--- NOTE | 2016-07-17 17:44 | ECHO Report ---
Kev Aviles Exam Date: 07/17/2016 07:57 Referring Physician: Technologist: Rebecca Garcia RDCS Age: 56 Ht (in): 71 Wt (lb): 320 Gender: M Exam Location: [facility] Echo Indications: Chest pain, unspecified, Hypertensive emergency, Nausea, Morbid (severe) obesity due to excess calories, Dyspnea, unspecified, Chronic fatigue, unspecified, ST elevation (STEMI) myocardial infarction of unspecified site BP: 155 / 93 HR: 82 Rhythm: Sinus Technical Quality: Technically difficult study IMPRESSIONS Moderate left ventricular hypertrophy. Left ventricular ejection fraction is estimated at 45 %. Mildly increased right ventricular size. The right atrium is mildly enlarged. The left atrium is mildly enlarged. MEASUREMENTS (Male / Female) Normal Values 2D ECHO LV Diastolic Diameter PLAX 4.6 cm 4.2 - 5.9 / 3.9 - 5.3 cm LV Systolic Diameter PLAX 3.5 cm LV Fractional Shortening PLAX 24.6 % IVS Diastolic Thickness 1.5 cm 0.6 - 1.0 / 0.6 - 0.9 cm LVPW Diastolic Thickness 1.5 cm 0.6 - 1.0 / 0.6 - 0.9 cm RV Internal Dim ED PLAX 4.1 cm Aortic Root Diameter 3.9 cm LA Systolic Diameter LX 4.6 cm 3.0 - 4.0 / 2.7 - 3.8 cm FINDINGS Left Ventricle Normal left ventricular cavity size. Moderate left ventricular hypertrophy. Left ventricular ejection fraction is estimated at 45 %. Right Ventricle Mildly increased right ventricular size. Right Atrium The right atrium is mildly enlarged. Left Atrium The left atrium is mildly enlarged. Mitral Valve Morphologically normal mitral valve without significant stenosis or prolapse. There is no mitral regurgitation. Aortic Valve Morphologically normal aortic valve without significant sclerosis or stenosis. There is no aortic regurgitation. Tricuspid Valve Morphologically normal tricuspid valve without significant stenosis or regurgitation. Pulmonary artery systolic pressure not assessed Pulmonic Valve Morphologically normal pulmonic valve without significant stenosis. There is no pulmonic regurgitation. Pericardium Normal pericardium without effusion. Aorta Normal ascending aorta dimension. Dereck Ahumada MD (Electronically Signed) Final Date: 17 July 2016 17:43
[2016-07-17 18:56] LABS: CKMB % 5.3 %
[2016-07-17 19:00] LABS: Troponin I Only 10.7 NG/ML (0.00-0.045)
[2016-07-17] MEDS: ATORVASTATIN 40 MG TABLET PO SCH (22:22)
[2016-07-18 05:38] LABS: Basophils % 0.3 % (0.0-0.8); Eosinophils # 0.1 10*3/uL (0.0-0.87); Eosinophils % 0.7 % (0.00-10.9); Hematocrit 42.1 VOL% (42.0-52.0); Hemoglobin 14.1 GM/DL (14.0-18.0); Immature Granulocytes % 0.4 %; Immature Granulocytes Absolute 0.04 #; Lymphocytes # 1.8 10*3/uL (1.4-4.0); Lymphocytes % 16.7 % (21.2-54.2); Mean Corpuscular HGB Conc 33.5 GM/DL (32-36); Mean Corpuscular Hemoglobin 31 PG (27-34); Mean Corpuscular Volume 92.3 FL (87-102); Mean Platelet Volume 11.9 FL (9.6-12.0); Monocytes # 0.8 10*3/uL (0.11-0.8); Monocytes % 7.8 % (1.7-12.7); Neutrophils # 7.9 10*3/uL (1.4-7.4); Neutrophils % 74.1 % (38.7-73.9); Platelet Count 249 T/CUMM (130-400); Red Blood Count 4.56 MC/CUMM (3.8-5.5); Red Cell Distribution Width 13.8 % (9.3-17.3); White Blood Count 10.7 T/CUMM (4-12)
[2016-07-18 06:02] LABS: Magnesium 2.1 MG/DL (1.8-2.4); Osmolality,Calculated 279.3 MOS/KG (273-304); Potassium 4.1 MMOL/L (3.5-5.1)
[2016-07-18 07:45] VITALS: BP 159/99
[2016-07-18] MEDS: RIVAROXABAN 20 MG TABLET PO SCH (08:34)
[2016-07-18] MEDS: FAMOTIDINE 20 MG TABLET PO SCH (08:34)
[2016-07-18] MEDS: ASPIRIN EC 81 MG TABLET PO SCH (08:34)
[2016-07-18] MEDS: CARVEDILOL 6.25 MG TABLET PO SCH (08:34)
[2016-07-18] MEDS: PANTOPRAZOLE 40 MG TABLET PO SCH (08:34)
[2016-07-18] MEDS ORDERED: LISINOPRIL 20 MG TABLET PO SCH (09:00)
[2016-07-18] MEDS ORDERED: CLOPIDOGREL 75 MG TABLET PO SCH (09:00)
--- NOTE | 2016-07-18 10:05 | Discharge Summary ---
Hospital Course - Hospital Course Hospital Course: DIRECTOR CLIENT (HECTOR) DR. NAIK SUMMARY: Mr. Aviles, 56M, presented to the ER July 14, 2016 with anterolateral STEMI. Underwent emergent LHC, performed by Dr. Naik, which revealed the following impression: Findings: 1. EF not assessed 2. Hemodynamics LV: 151/29 EDP:30 Ao:155/105 3. Left main: Angiographically normal very large 4: Left anterior descending artery: This is a very large vessel that reaches the apex of ventricular myocardium and also a sense inferior intraventricular septum acting as a PDA. There is diffuse moderate to severe disease in the vessel just before reaching the apex of the ventricle. There is 2 very small heavily diseased diagonals D1 and D2 have 70-80% diffuse disease. These are too small for intervention. 5: Left circumflex artery: This is a very large vessel that gives rise to an extremely large first obtuse marginal has approximately 70% ostial first obtuse marginal stenosis. This supplies majority of the lateral ventricular myocardium. The circumflex does not reach the distribution of the PDA it is not dominant but neither is the right. The PDA distribution is supplied by a very large LAD. 6: Right coronary artery: Small nondominant vessel no high-grade epicardial stenosis Assessment: 1. Moderate range disease in the distal LAD and the ostial first obtuse marginal with high-grade stenosis in 2 small diagonal arteries 2. Uncontrolled blood pressure and elevated left ventricular end-diastolic pressure of 30 mmHg Troponin peaked at 15.1 trending down prior to discharge. He is having no chest pain, heaviness or tightness. He has been ambulating without difficulty. Sleep medicine physician is out of town this week and before he will be given outpatient follow-up with Dr. Velazquez. He tells me he will keep this appointment. Patient was not taking any medications prior to admission. The following are his discharge medications: Aspirin 81 mg orally daily Plavix 75 mg orally daily Xarelto 20 mg orally daily Coreg 6.25 mg orally twice daily Lisinopril 20 mg orally daily Protonix 40 mg orally daily Atorvastatin 80 mg orally each evening - Time spent with patient Time with patient DS: Greater than 30 minutes Diagnosis - Discharge Diagnosis (1) Dyslipidemia Status: Chronic (2) Sleep disorder Status: Chronic (3) Atrial fibrillation Status: Chronic (4) Hypertensive emergency Status: Resolved (5) ST elevation MT (STEMI) Status: Resolved (6) Morbid exogenous obesity Status: Chronic Specialty Discharge - Follow Up or Referrals Follow up with: Lauren Naik DO [Physician] - (2 weeks. BMP, Mg, CBC. EKG) Ashley Velazquez MD [Physician] - (Schedule for outpatient appointment with Dr. Velazquez 1-2 weeks. This may have already been made.) Discharge Plan - Discharge Data Disposition: Disch To Home/Self Care Condition at Discharge: Stable Discharge Diet: heart healthy Activity: other (post cath expectations) Hygiene: no restrictions Weight Bearing at Discharge: other (post cath expectations) Driving: other (post cath expectations) Contact your physician if you experience:: fever over 101, Difficulty voiding, Redness or swelling, Nausea/Vomiting, Shortness of breath, Bleeding, pain uncontrolled by pain medications - Discharge Medications New Carvedilol [Coreg] 6.25 mg PO BID #60 tablet Clopidogrel [Plavix] 75 mg PO DAILY #30 tablet Lisinopril [Prinivil] 20 mg PO DAILY #30 tablet Pantoprazole Tab [Protonix Tab] 40 mg PO DAILY #30 tablet Aspirin EC Tab 81 mg PO DAILY #30 tablet Atorvastatin [Lipitor] 80 mg PO BEDTIME #30 tablet Rivaroxaban [Xarelto] 20 mg PO DAILY W/BREAKFAST #30 tablet No Action No Known Home Medications [No Known Home Medications] - Follow Up or Referral - Forms/Instructions Instructions: Myocardial Infarction (GEN), Coronary Artery Disease (GEN), Left Heart Catheterization (DC), Heart Healthy Diet (GEN) Exam - Constitutional Vitals: Period Temp Pulse Resp BP Sys/Vincent Pulse Ox Last 24 Hr 97.3 F-98.5 F 66-82 14-24 134-166/68-108 93-97 Exam: General: [Appears well with no apparent distress.] [Pleasant and cooperative. ] [Appears comfortable.] HEENT: [PERRL, normocephalic, atraumatic. Mucous membranes moist. No jaundice noted. Conjunctiva moist and clear, sclerae anicteric] Neck: Difficult to assess for JVD due to habitus. No thyromegaly or lymphadenopathy noted. No carotid bruit appreciated PMI is nondisplaced. Lungs: [Clear to auscultation without accessory muscle use to assist the respiratory pattern.] Not requiring oxygen. Abdomen: Soft, bowel sounds normoactive. Nontender and nondistended. No abdominal bruit or thrill noted. No masses noted. Musculoskeletal: No fluid collection. Decreased range of motion is noted. Extremities: Right wrist, free of hematoma. Radial pulses 2+. Capillary refill brisk. No clubbing, cyanosis noted. [ No edema noted.] Lower extremity pulses 2+. Capillary refill less than 3 seconds. Skin: No unusual lesions or rashes. No skin breakdown appreciated. Neuro: Awake, alert and oriented 3. Moves all extremities well without hemiparesis or paralysis. No essential tremor is appreciated. Discharge Results Procedures and tests throughout hospitalization: Pending Orders 07/19/16 04:00 BMP w/ Mg [Basic Metabolic Panel w/Mg] IN AM CBC [Comp Blood Count Auto Diff] IN AM Labs on day of discharge: Labs from last 24 hours 07/18/16 07/18/16 07/17/16 05:19 05:19 17:37 WBC 10.7 RBC 4.56 Hgb 14.1 Hct 42.1 MCV 92.3 MCH 31 MCHC 33.5 RDW 13.8 Plt Count 249 MPV 11.9 Neut % (Auto) 74.1 H Lymph % (Auto) 16.7 L [place] % (Auto) 7.8 Eos % (Auto) 0.7 Baso % (Auto) 0.3 Neut # (Auto) 7.9 H Lymph # (Auto) 1.8 [place] # (Auto) 0.8 Eos # (Auto) 0.1 Baso # (Auto) 0.0 Immature Gran % 0.4 Nucleated RBC % 0.0 Immature Gran # 0.04 Nucleated RBCs # 0.00 Sodium 141 Potassium 4.1 Chloride 103 Carbon Dioxide 27 Anion Gap 15.1 H BUN 8 Creatinine 0.80 GFR Calculation 149 BUN/Creatinine Ratio 10.00 Glucose 114 H Calculated Osmolality 279.3 Calcium 9.0 Magnesium 2.1 Total Creatine Kinase 585 H CK-MB (CK-2) 31.1 H D CK and CKMB Interp 5.3 Troponin I 10.700 H 07/17/16 10:19 WBC RBC Hgb Hct MCV MCH MCHC RDW Plt Count MPV Neut % (Auto) Lymph % (Auto) [place] % (Auto) Eos % (Auto) Baso % (Auto) Neut # (Auto) Lymph # (Auto) [place] # (Auto) Eos # (Auto) Baso # (Auto) Immature Gran % Nucleated RBC % Immature Gran # Nucleated RBCs # Sodium Potassium Chloride Carbon Dioxide Anion Gap BUN Creatinine GFR Calculation BUN/Creatinine Ratio Glucose Calculated Osmolality Calcium Magnesium Total Creatine Kinase 661 H D CK-MB (CK-2) 44.4 H D CK and CKMB Interp 6.7 Troponin I 12.100 H - Imaging and Cardiology Cardiology Procedure: report reviewed by me Procedure: Chest x-ray: report reviewed by me DS: Provider Date of admission: 07/16/16 16:28 Primary care physician: Markus Brooke DO Attending physician on admission: Lauren Naik DO Consults: 07/16/16 16:28 Consult to Cardiac Rehabilitation [CONS] Routine Reason for Cardiac Rehabilitation: Risk Factor Modification Consult to Physician [CONS] Routine Comment: Consulting Provider: Ashley Velazquez Person Notified: sleep lab voicemail Date Notified: 07/17/16 Time Notified: 11:20 Consult Notification Comment: advised them pt would be transfered upstairs later Discharging clinician: Nazia Jacobs NP Expected date of discharge: 07/18/16
== END 2016-07-18 12:37 | disposition home or self-care (01) | DRG 281 ==
LOC: N.ED 15:10 → N.CL 15:49 → N.CC 15:53 → N.TELES 07-17 15:01
PROVIDERS: ADMIT Internal Medicine Cardiovascular Disease; ATTEND Internal Medicine Cardiovascular Disease
PROC: CLCCHCL (ICD-10-PCS; 2016-07-16 16:15)

== ENCOUNTER 2020-09-24 10:46 | Inpatient (IN) ==
[2020-09-24 12:24] LABS: Basophils % 0.2 % (0.0-0.8); Eosinophils % 0.1 % (0.00-10.9); Hematocrit 34.4 VOL% (42.0-52.0); Hemoglobin 11.6 GM/DL (14.0-18.0); Immature Granulocytes % 0.6 %; Immature Granulocytes Absolute 0.07 #; Lymphocytes # 0.3 10*3/uL (1.4-4.0); Lymphocytes % 2.9 % (21.2-54.2); Mean Corpuscular HGB Conc 33.7 GM/DL (32-36); Mean Corpuscular Volume 91.7 FL (87-102); Mean Platelet Volume 11.2 FL (9.6-12.0); Monocytes % 2.1 % (1.7-12.7); Neutrophils % 94.1 % (38.7-73.9); Platelet Count 332 T/CUMM (130-400); Red Blood Count 3.75 MC/CUMM (3.8-5.5); Red Cell Distribution Width 15.2 % (9.3-17.3); White Blood Count 11.2 T/CUMM (4-12)
[2020-09-24 12:53] LABS: Lymphocytes 2 % (20-55); Segmented Neutrophils 97 % (50-85); Total Cells Counted 100
[2020-09-24 12:53] LABS: Albumin 2.8 G/DL (3.4-5.0); Bilirubin,Total 0.7 MG/DL (0.20-1.00); Calcium 8.2 MG/DL (8.5-10.1); Ferritin 249.7 ng/ml (26-388); Osmolality,Calculated 245.1 MOS/KG (273-304); Potassium 2.8 MMOL/L (3.5-5.1); Total Protein 7.6 G/DL (6.4-8.2)
[2020-09-24 12:54] LABS: Anisocytosis Slight; Platelet Estimate Adequate
[2020-09-24] MEDS ORDERED: AZITHROMYCIN INJ 500 MG in SODIUM CHLORIDE 0.9% 250 ML IV STA (13:10)
[2020-09-24] MEDS ORDERED: cefTRIAXone 1,000 MG in SODIUM CHLORIDE 0.9% 100 ML IV STA (13:10)
[2020-09-24] MEDS ORDERED: POTASSIUM CHLORIDE 20 MEQ TABLET PO STA (13:23)
[2020-09-24] MEDS ORDERED: POTASSIUM CHLORIDE 20 MEQ TABLET PO ONE ×2 (13:24→17:00)
[2020-09-24] MEDS ORDERED: DEXTROSE 50% 25 GM/50 ML VIAL IV PRN (14:32)
[2020-09-24] MEDS ORDERED: ACETAMINOPHEN 325 MG TABLET PO PRN (14:32)
[2020-09-24] MEDS ORDERED: GLUCAGON 1 MG VIAL IM PRN (14:32)
[2020-09-24] MEDS ORDERED: ONDANSETRON 4 MG/2 ML VIAL IV PRN (14:32)
[2020-09-24] MEDS ORDERED: SODIUM CHLOR 0.9% KCL 40 MEQ 40 MEQ/1,000 ML BAG IV ONE (15:10)
[2020-09-24] MEDS: ASCORBIC ACID 500 MG TABLET PO SCH ×2 (15:23→22:50)
[2020-09-24] MEDS: CHOLECALCIFEROL 1,000 UNIT TABLET PO SCH (15:23)
[2020-09-24] MEDS: FAMOTIDINE 20 MG TABLET PO SCH ×2 (15:23→22:50)
[2020-09-24] MEDS: DEXAMETHASONE 10 MG/1 ML VIAL IV SCH (15:23)
[2020-09-24] MEDS: ZINC GLUCONATE 50 MG TABLET PO SCH (15:24)
[2020-09-24] MEDS: CETIRIZINE 10 MG TABLET PO SCH (15:24)
[2020-09-24] MEDS: SODIUM CHLOR 0.9% KCL 40 MEQ 40 MEQ/1,000 ML BAG IV SCH (15:30)
[2020-09-24] MEDS: carvediloL 6.25 MG TABLET PO SCH (21:45)
[2020-09-24] MEDS: MAGNESIUM OXIDE 400 MG TABLET PO SCH (21:45)
[2020-09-24] MEDS: POTASSIUM CHLORIDE 20 MEQ TABLET PO SCH (21:45)
[2020-09-25] MEDS: guaiFENesin 200 MG/10 ML UDCUP PO PRN ×4 (00:04→16:52)
[2020-09-25] MEDS: SODIUM CHLOR 0.9% KCL 40 MEQ 40 MEQ/1,000 ML BAG IV SCH ×2 (05:24→17:40)
[2020-09-25 06:45] LABS: Basophils % 0.1 % (0.0-0.8); Eosinophils % 0.1 % (0.00-10.9); Hematocrit 30.2 VOL% (42.0-52.0); Hemoglobin 9.4 GM/DL (14.0-18.0); Immature Granulocytes % 1.1 %; Immature Granulocytes Absolute 0.09 #; Lymphocytes # 0.4 10*3/uL (1.4-4.0); Lymphocytes % 4.9 % (21.2-54.2); Mean Corpuscular HGB Conc 31.1 GM/DL (32-36); Mean Corpuscular Volume 97.1 FL (87-102); Mean Platelet Volume 11.2 FL (9.6-12.0); Monocytes % 2.9 % (1.7-12.7); Neutrophils % 90.9 % (38.7-73.9); Platelet Count 256 T/CUMM (130-400); Red Blood Count 3.11 MC/CUMM (3.8-5.5); Red Cell Distribution Width 15.7 % (9.3-17.3)
[2020-09-25 07:16] LABS: Ferritin 240.7 ng/ml (26-388)
[2020-09-25] MEDS: RIVAROXABAN 20 MG TABLET PO SCH (08:06)
[2020-09-25] MEDS: CHOLECALCIFEROL 1,000 UNIT TABLET PO SCH (08:07)
[2020-09-25] MEDS: ASCORBIC ACID 500 MG TABLET PO SCH ×2 (08:07→22:00)
[2020-09-25] MEDS: ASPIRIN EC 81 MG TABLET PO SCH (08:07)
[2020-09-25] MEDS: AZITHROMYCIN 250 MG TABLET PO SCH (08:07)
[2020-09-25] MEDS: ZINC GLUCONATE 50 MG TABLET PO SCH (08:07)
[2020-09-25] MEDS: MAGNESIUM OXIDE 400 MG TABLET PO SCH ×2 (08:07→22:00)
[2020-09-25] MEDS: CETIRIZINE 10 MG TABLET PO SCH (08:07)
[2020-09-25] MEDS: POTASSIUM CHLORIDE 20 MEQ TABLET PO SCH ×2 (08:07→22:00)
[2020-09-25] MEDS: carvediloL 6.25 MG TABLET PO SCH ×2 (08:07→22:00)
[2020-09-25] MEDS: DEXAMETHASONE 10 MG/1 ML VIAL IV SCH (08:07)
[2020-09-25] MEDS: FAMOTIDINE 20 MG TABLET PO SCH ×2 (08:07→22:00)
[2020-09-25 11:59] LABS: Lymphocytes 1 % (20-55); Platelet Estimate Normal; Segmented Neutrophils 98 % (50-85); Total Cells Counted 100
[2020-09-25] MEDS: cefTRIAXone 2,000 MG in SODIUM CHLORIDE 0.9% 100 ML IV SCH (12:07)
[2020-09-25 14:00] LABS: Calcium 7.6 MG/DL (8.5-10.1); Osmolality,Calculated 256.2 MOS/KG (273-304)
[2020-09-26 06:11] LABS: Albumin 2.2 G/DL (3.4-5.0); Bilirubin,Total 0.9 MG/DL (0.20-1.00); Calcium 7.4 MG/DL (8.5-10.1); Osmolality,Calculated 259.8 MOS/KG (273-304); Potassium 3.6 MMOL/L (3.5-5.1); Total Protein 6.8 G/DL (6.4-8.2)
[2020-09-26 06:26] LABS: Calcium 7.5 MG/DL (8.5-10.1); Osmolality,Calculated 263.5 MOS/KG (273-304); Potassium 3.7 MMOL/L (3.5-5.1)
[2020-09-26 06:41] LABS: Ferritin 359.4 ng/ml (26-388)
[2020-09-26] MEDS: guaiFENesin 200 MG/10 ML UDCUP PO PRN ×3 (07:08→17:41)
[2020-09-26 07:56] LABS: Hemoglobin 10.5 GM/DL (14.0-18.0); Immature Granulocytes Absolute 0.08 #; Lymphocytes # 0.4 10*3/uL (1.4-4.0); Lymphocytes % 4.2 % (21.2-54.2); Mean Corpuscular HGB Conc 31.8 GM/DL (32-36); Mean Corpuscular Volume 94.6 FL (87-102); Mean Platelet Volume 11.5 FL (9.6-12.0); Monocytes % 4.1 % (1.7-12.7); Neutrophils % 90.7 % (38.7-73.9); Platelet Count 330 T/CUMM (130-400); Red Blood Count 3.49 MC/CUMM (3.8-5.5); Red Cell Distribution Width 15.7 % (9.3-17.3); White Blood Count 8.3 T/CUMM (4-12)
[2020-09-26] MEDS: ZINC GLUCONATE 50 MG TABLET PO SCH (09:02)
[2020-09-26] MEDS: CETIRIZINE 10 MG TABLET PO SCH (09:02)
[2020-09-26] MEDS: carvediloL 6.25 MG TABLET PO SCH ×2 (09:02→21:38)
[2020-09-26] MEDS: POTASSIUM CHLORIDE 20 MEQ TABLET PO SCH ×2 (09:02→21:38)
[2020-09-26] MEDS: FAMOTIDINE 20 MG TABLET PO SCH ×2 (09:02→21:39)
[2020-09-26] MEDS: MAGNESIUM OXIDE 400 MG TABLET PO SCH ×2 (09:02→21:39)
[2020-09-26] MEDS: RIVAROXABAN 20 MG TABLET PO SCH (09:02)
[2020-09-26] MEDS: CHOLECALCIFEROL 1,000 UNIT TABLET PO SCH (09:02)
[2020-09-26] MEDS: ASPIRIN EC 81 MG TABLET PO SCH (09:02)
[2020-09-26] MEDS: AZITHROMYCIN 250 MG TABLET PO SCH (09:02)
[2020-09-26] MEDS: DEXAMETHASONE 10 MG/1 ML VIAL IV SCH (09:03)
[2020-09-26 10:03] LABS: Lymphocytes 2 % (20-55); Segmented Neutrophils 94 % (50-85); Total Cells Counted 100
[2020-09-26 10:04] LABS: Platelet Estimate Normal
[2020-09-26] MEDS: ASCORBIC ACID 500 MG TABLET PO SCH ×2 (10:43→21:39)
[2020-09-26] MEDS: cefTRIAXone 2,000 MG in SODIUM CHLORIDE 0.9% 100 ML IV SCH (12:43)
[2020-09-26] MEDS ORDERED: REMDESIVIR 200 MG in SODIUM CHLORIDE 0.9% 210 ML IV ONE (14:00)
[2020-09-26] MEDS: SODIUM CHLOR 0.9% KCL 40 MEQ 40 MEQ/1,000 ML BAG IV SCH (15:06)
[2020-09-27 06:30] LABS: Basophils % 0.2 % (0.0-0.8); Hematocrit 31.8 VOL% (42.0-52.0); Hemoglobin 10.4 GM/DL (14.0-18.0); Immature Granulocytes % 0.6 %; Immature Granulocytes Absolute 0.03 #; Lymphocytes # 0.4 10*3/uL (1.4-4.0); Lymphocytes % 6.7 % (21.2-54.2); Mean Corpuscular HGB Conc 32.7 GM/DL (32-36); Mean Corpuscular Volume 94.1 FL (87-102); Mean Platelet Volume 11.6 FL (9.6-12.0); Monocytes % 7.6 % (1.7-12.7); Neutrophils % 84.9 % (38.7-73.9); Platelet Count 360 T/CUMM (130-400); Red Blood Count 3.38 MC/CUMM (3.8-5.5); Red Cell Distribution Width 15.8 % (9.3-17.3); White Blood Count 5.2 T/CUMM (4-12)
[2020-09-27 06:48] LABS: Albumin 2.1 G/DL (3.4-5.0); Bilirubin,Total 0.4 MG/DL (0.20-1.00); Calcium 7.4 MG/DL (8.5-10.1); Ferritin 440.3 ng/ml (26-388); Osmolality,Calculated 260.8 MOS/KG (273-304); Potassium 4.2 MMOL/L (3.5-5.1); Total Protein 6.4 G/DL (6.4-8.2)
[2020-09-27 06:55] LABS: Lymphocytes 6 % (20-55); Platelet Estimate Adequate; Segmented Neutrophils 89 % (50-85); Total Cells Counted 100
[2020-09-27 06:56] LABS: Hypochromasia 1+; Microcytosis 1+
[2020-09-27] MEDS: SODIUM CHLOR 0.9% KCL 40 MEQ 40 MEQ/1,000 ML BAG IV SCH ×2 (07:04→20:51)
[2020-09-27] MEDS: RIVAROXABAN 20 MG TABLET PO SCH (08:26)
[2020-09-27] MEDS: cefTRIAXone 2,000 MG in SODIUM CHLORIDE 0.9% 100 ML IV SCH (08:26)
[2020-09-27] MEDS: DEXAMETHASONE 10 MG/1 ML VIAL IV SCH (08:26)
[2020-09-27] MEDS: FAMOTIDINE 20 MG TABLET PO SCH ×2 (08:26→20:51)
[2020-09-27] MEDS: ASPIRIN EC 81 MG TABLET PO SCH (08:26)
[2020-09-27] MEDS: ZINC GLUCONATE 50 MG TABLET PO SCH (08:26)
[2020-09-27] MEDS: CHOLECALCIFEROL 1,000 UNIT TABLET PO SCH (08:26)
[2020-09-27] MEDS: carvediloL 6.25 MG TABLET PO SCH ×2 (08:26→20:51)
[2020-09-27] MEDS: CETIRIZINE 10 MG TABLET PO SCH (08:26)
[2020-09-27] MEDS: MAGNESIUM OXIDE 400 MG TABLET PO SCH ×2 (08:26→20:51)
[2020-09-27] MEDS: AZITHROMYCIN 250 MG TABLET PO SCH (08:26)
[2020-09-27] MEDS: ASCORBIC ACID 500 MG TABLET PO SCH ×2 (08:26→20:51)
[2020-09-27] MEDS: POTASSIUM CHLORIDE 20 MEQ TABLET PO SCH ×2 (08:26→20:51)
[2020-09-27] MEDS: REMDESIVIR 100 MG in SODIUM CHLORIDE 0.9% 100 ML IV SCH (09:11)
[2020-09-27] MEDS: guaiFENesin 200 MG/10 ML UDCUP PO PRN (20:51)
[2020-09-28 05:46] LABS: Basophils % 0.3 % (0.0-0.8); Eosinophils % 0.3 % (0.00-10.9); Hematocrit 34.1 VOL% (42.0-52.0); Hemoglobin 11.1 GM/DL (14.0-18.0); Immature Granulocytes % 1.3 %; Immature Granulocytes Absolute 0.08 #; Lymphocytes # 0.5 10*3/uL (1.4-4.0); Lymphocytes % 7.8 % (21.2-54.2); Mean Corpuscular HGB Conc 32.6 GM/DL (32-36); Mean Platelet Volume 11.8 FL (9.6-12.0); Monocytes % 6.3 % (1.7-12.7); Platelet Count 363 T/CUMM (130-400); Red Blood Count 3.59 MC/CUMM (3.8-5.5); Red Cell Distribution Width 15.8 % (9.3-17.3); White Blood Count 6.2 T/CUMM (4-12)
[2020-09-28 06:11] LABS: Albumin 2.1 G/DL (3.4-5.0); Bilirubin,Total 0.5 MG/DL (0.20-1.00); Calcium 7.3 MG/DL (8.5-10.1); Potassium 4.7 MMOL/L (3.5-5.1); Total Protein 6.3 G/DL (6.4-8.2)
[2020-09-28 06:17] LABS: Hypochromasia Slight
[2020-09-28 06:18] LABS: Microcytosis 1+; Ovalocytes Slight; Polychromasia Slight
[2020-09-28 06:19] LABS: Platelet Estimate Normal
[2020-09-28 06:22] LABS: Ferritin 382.3 ng/ml (26-388)
[2020-09-28] MEDS: DEXAMETHASONE 10 MG/1 ML VIAL IV SCH (08:11)
[2020-09-28] MEDS: AZITHROMYCIN 250 MG TABLET PO SCH (08:11)
[2020-09-28] MEDS: ASPIRIN EC 81 MG TABLET PO SCH (08:11)
[2020-09-28] MEDS: FAMOTIDINE 20 MG TABLET PO SCH ×2 (08:11→21:20)
[2020-09-28] MEDS: cefTRIAXone 2,000 MG in SODIUM CHLORIDE 0.9% 100 ML IV SCH (08:11)
[2020-09-28] MEDS: MAGNESIUM OXIDE 400 MG TABLET PO SCH ×2 (08:11→21:20)
[2020-09-28] MEDS: carvediloL 6.25 MG TABLET PO SCH ×2 (08:11→21:20)
[2020-09-28] MEDS: ZINC GLUCONATE 50 MG TABLET PO SCH (08:11)
[2020-09-28] MEDS: CHOLECALCIFEROL 1,000 UNIT TABLET PO SCH (08:11)
[2020-09-28] MEDS: RIVAROXABAN 20 MG TABLET PO SCH (08:11)
[2020-09-28] MEDS: ASCORBIC ACID 500 MG TABLET PO SCH ×2 (08:11→21:20)
[2020-09-28] MEDS: POTASSIUM CHLORIDE 20 MEQ TABLET PO SCH ×2 (08:11→21:24)
[2020-09-28] MEDS: CETIRIZINE 10 MG TABLET PO SCH (08:12)
[2020-09-28] MEDS: SODIUM CHLOR 0.9% KCL 40 MEQ 40 MEQ/1,000 ML BAG IV SCH (12:20)
[2020-09-28] MEDS: REMDESIVIR 100 MG in SODIUM CHLORIDE 0.9% 100 ML IV SCH (12:20)
[2020-09-29 06:14] LABS: Basophils % 0.1 % (0.0-0.8); Eosinophils % 0.4 % (0.00-10.9); Hematocrit 34.1 VOL% (42.0-52.0); Hemoglobin 10.7 GM/DL (14.0-18.0); Immature Granulocytes % 1.5 %; Immature Granulocytes Absolute 0.12 #; Lymphocytes # 0.6 10*3/uL (1.4-4.0); Lymphocytes % 8.2 % (21.2-54.2); Mean Corpuscular HGB Conc 31.4 GM/DL (32-36); Mean Corpuscular Volume 97.2 FL (87-102); Mean Platelet Volume 11.4 FL (9.6-12.0); Monocytes % 4.6 % (1.7-12.7); NRBC # 0.02 10*3/uL; Neutrophils % 85.2 % (38.7-73.9); Platelet Count 431 T/CUMM (130-400); Red Blood Count 3.51 MC/CUMM (3.8-5.5); Red Cell Distribution Width 16.2 % (9.3-17.3); White Blood Count 7.8 T/CUMM (4-12)
[2020-09-29 06:42] LABS: Albumin 2.2 G/DL (3.4-5.0); Bilirubin,Total 0.4 MG/DL (0.20-1.00); Calcium 8.1 MG/DL (8.5-10.1); Osmolality,Calculated 274.8 MOS/KG (273-304); Potassium 4.5 MMOL/L (3.5-5.1)
[2020-09-29 06:46] LABS: Hypochromasia 1+; Lymphocytes 9 % (20-55); Microcytosis 1+; Platelet Estimate Adequate; Segmented Neutrophils 83 % (50-85); Total Cells Counted 100
[2020-09-29 06:58] LABS: Ferritin 233.8 ng/ml (26-388)
[2020-09-29] MEDS: DEXAMETHASONE 10 MG/1 ML VIAL IV SCH (09:30)
[2020-09-29] MEDS: MAGNESIUM OXIDE 400 MG TABLET PO SCH ×2 (09:31→21:38)
[2020-09-29] MEDS: cefTRIAXone 2,000 MG in SODIUM CHLORIDE 0.9% 100 ML IV SCH (09:31)
[2020-09-29] MEDS: CHOLECALCIFEROL 1,000 UNIT TABLET PO SCH (09:31)
[2020-09-29] MEDS: carvediloL 6.25 MG TABLET PO SCH ×2 (09:32→21:39)
[2020-09-29] MEDS: FAMOTIDINE 20 MG TABLET PO SCH ×2 (09:32→21:38)
[2020-09-29] MEDS: RIVAROXABAN 20 MG TABLET PO SCH (09:32)
[2020-09-29] MEDS: ZINC GLUCONATE 50 MG TABLET PO SCH (09:32)
[2020-09-29] MEDS: ASPIRIN EC 81 MG TABLET PO SCH (09:32)
[2020-09-29] MEDS: POTASSIUM CHLORIDE 20 MEQ TABLET PO SCH ×2 (09:33→21:39)
[2020-09-29] MEDS: ASCORBIC ACID 500 MG TABLET PO SCH ×2 (09:33→21:39)
[2020-09-29] MEDS: CETIRIZINE 10 MG TABLET PO SCH (09:33)
[2020-09-29] MEDS: REMDESIVIR 100 MG in SODIUM CHLORIDE 0.9% 100 ML IV SCH (10:48)
[2020-09-29] MEDS: BENZONATATE 100 MG CAPSULE PO SCH ×2 (14:22→21:38)
[2020-09-30 06:29] LABS: Basophils % 0.3 % (0.0-0.8); Eosinophils % 0.3 % (0.00-10.9); Hematocrit 36.1 VOL% (42.0-52.0); Hemoglobin 11.5 GM/DL (14.0-18.0); Immature Granulocytes % 2.5 %; Immature Granulocytes Absolute 0.23 #; Lymphocytes # 0.8 10*3/uL (1.4-4.0); Lymphocytes % 9.1 % (21.2-54.2); Mean Corpuscular HGB Conc 31.9 GM/DL (32-36); Mean Corpuscular Volume 97.8 FL (87-102); Mean Platelet Volume 11.6 FL (9.6-12.0); Monocytes % 5.4 % (1.7-12.7); NRBC # 0.03 10*3/uL; Neutrophils % 82.4 % (38.7-73.9); Platelet Count 439 T/CUMM (130-400); Red Blood Count 3.69 MC/CUMM (3.8-5.5); Red Cell Distribution Width 16.3 % (9.3-17.3); White Blood Count 9.3 T/CUMM (4-12)
[2020-09-30 06:45] LABS: Alanine Aminotransferase 159 U/L (16-61); Albumin 2.1 G/DL (3.4-5.0); Alkaline Phosphatase 63 U/L (45-117); Aspartate Amino Transferase 52 U/L (0-37); Bilirubin,Total < 0.39 MG/DL (0.20-1.00); Blood Urea Nitrogen 13 MG/DL (7-18); Calcium 8.1 MG/DL (8.5-10.1); Carbon Dioxide 26 MMOL/L (21-32); Estimated Glom Filtration Rate 177 ML/MIN; Glucose 83 MG/DL (74-106); Osmolality,Calculated 266.2 MOS/KG (273-304); Potassium 4.8 MMOL/L (3.5-5.1); Sodium 134 MMOL/L (136-145); Total Protein 6.1 G/DL (6.4-8.2)
[2020-09-30 07:04] LABS: Band Neutrophils 8 % (0-10); Eosinophils 1 % (0-10); Lymphocytes 10 % (20-55); Nucleated Red Blood Cells 1 (0-5); Platelet Estimate Normal; Segmented Neutrophils 74 % (50-85); Total Cells Counted 100
[2020-09-30 07:05] LABS: Anisocytosis 2+; Burr Cells Few; Ferritin 184.9 ng/ml (26-388); Ovalocytes Few
[2020-09-30] MEDS: DEXAMETHASONE 10 MG/1 ML VIAL IV SCH (09:27)
[2020-09-30] MEDS: cefTRIAXone 2,000 MG in SODIUM CHLORIDE 0.9% 100 ML IV SCH (09:27)
[2020-09-30] MEDS: BENZONATATE 100 MG CAPSULE PO SCH ×3 (09:28→21:27)
[2020-09-30] MEDS: ZINC GLUCONATE 50 MG TABLET PO SCH (09:28)
[2020-09-30] MEDS: FAMOTIDINE 20 MG TABLET PO SCH ×2 (09:28→21:27)
[2020-09-30] MEDS: ASPIRIN EC 81 MG TABLET PO SCH (09:28)
[2020-09-30] MEDS: CETIRIZINE 10 MG TABLET PO SCH (09:28)
[2020-09-30] MEDS: ASCORBIC ACID 500 MG TABLET PO SCH ×2 (09:28→21:27)
[2020-09-30] MEDS: CHOLECALCIFEROL 1,000 UNIT TABLET PO SCH (09:28)
[2020-09-30] MEDS: RIVAROXABAN 20 MG TABLET PO SCH (09:29)
[2020-09-30] MEDS: carvediloL 6.25 MG TABLET PO SCH ×2 (09:29→21:27)
[2020-09-30] MEDS: MAGNESIUM OXIDE 400 MG TABLET PO SCH ×2 (09:29→21:27)
[2020-09-30] MEDS: POTASSIUM CHLORIDE 20 MEQ TABLET PO SCH ×2 (10:06→21:27)
[2020-09-30] MEDS: REMDESIVIR 100 MG in SODIUM CHLORIDE 0.9% 100 ML IV SCH (10:30)
[2020-09-30] MEDS: MELATONIN 3 MG TABLET PO PRN (21:28)
[2020-10-01 05:42] LABS: Basophils % 0.3 % (0.0-0.8); Eosinophils # 0.1 10*3/uL (0.0-0.87); Eosinophils % 0.8 % (0.00-10.9); Hematocrit 35.8 VOL% (42.0-52.0); Hemoglobin 11.2 GM/DL (14.0-18.0); Immature Granulocytes % 3.1 %; Immature Granulocytes Absolute 0.33 #; Lymphocytes # 1.4 10*3/uL (1.4-4.0); Mean Corpuscular HGB Conc 31.3 GM/DL (32-36); Mean Corpuscular Volume 97.8 FL (87-102); Mean Platelet Volume 10.8 FL (9.6-12.0); Monocytes % 5.3 % (1.7-12.7); NRBC # 0.04 10*3/uL; Neutrophils % 77.5 % (38.7-73.9); Platelet Count 493 T/CUMM (130-400); Red Blood Count 3.66 MC/CUMM (3.8-5.5); Red Cell Distribution Width 16.4 % (9.3-17.3); White Blood Count 10.6 T/CUMM (4-12)
[2020-10-01 06:00] LABS: Bilirubin,Total 0.4 MG/DL (0.20-1.00); Osmolality,Calculated 274.8 MOS/KG (273-304)
[2020-10-01 06:17] LABS: Anisocytosis 2+; Band Neutrophils 9 % (0-10); Eosinophils 1 % (0-10); Lymphocytes 14 % (20-55); Ovalocytes Few; Platelet Estimate Normal; Segmented Neutrophils 69 % (50-85); Total Cells Counted 100
[2020-10-01 06:18] LABS: Tear Drop Cells Few
[2020-10-01] MEDS: POTASSIUM CHLORIDE 20 MEQ TABLET PO SCH ×2 (09:55→20:35)
[2020-10-01] MEDS: cefTRIAXone 2,000 MG in SODIUM CHLORIDE 0.9% 100 ML IV SCH (10:03)
[2020-10-01] MEDS: carvediloL 6.25 MG TABLET PO SCH ×2 (10:04→20:35)
[2020-10-01] MEDS: DEXAMETHASONE 10 MG/1 ML VIAL IV SCH (10:04)
[2020-10-01] MEDS: RIVAROXABAN 20 MG TABLET PO SCH (10:04)
[2020-10-01] MEDS: ZINC GLUCONATE 50 MG TABLET PO SCH (10:04)
[2020-10-01] MEDS: CHOLECALCIFEROL 1,000 UNIT TABLET PO SCH (10:04)
[2020-10-01] MEDS: ASCORBIC ACID 500 MG TABLET PO SCH ×2 (10:05→20:35)
[2020-10-01] MEDS: CETIRIZINE 10 MG TABLET PO SCH (10:05)
[2020-10-01] MEDS: FAMOTIDINE 20 MG TABLET PO SCH ×2 (10:05→20:35)
[2020-10-01] MEDS: BENZONATATE 100 MG CAPSULE PO SCH ×3 (10:05→20:35)
[2020-10-01] MEDS: MAGNESIUM OXIDE 400 MG TABLET PO SCH ×2 (10:05→20:35)
[2020-10-01] MEDS: ASPIRIN EC 81 MG TABLET PO SCH (10:06)
[2020-10-01] MEDS: MELATONIN 3 MG TABLET PO PRN (20:35)
[2020-10-02 05:13] LABS: Basophils % 0.3 % (0.0-0.8); Eosinophils % 0.3 % (0.00-10.9); Hematocrit 35.8 VOL% (42.0-52.0); Hemoglobin 11.2 GM/DL (14.0-18.0); Immature Granulocytes % 5.2 %; Immature Granulocytes Absolute 0.64 #; Lymphocytes # 1.7 10*3/uL (1.4-4.0); Mean Corpuscular HGB Conc 31.3 GM/DL (32-36); Mean Corpuscular Volume 98.1 FL (87-102); Mean Platelet Volume 10.7 FL (9.6-12.0); Monocytes % 4.8 % (1.7-12.7); NRBC # 0.04 10*3/uL; Neutrophils % 75.4 % (38.7-73.9); Platelet Count 514 T/CUMM (130-400); Red Blood Count 3.65 MC/CUMM (3.8-5.5); Red Cell Distribution Width 16.8 % (9.3-17.3); White Blood Count 12.3 T/CUMM (4-12)
[2020-10-02 05:37] LABS: Hypochromasia 1+; Lymphocytes 13 % (20-55); Microcytosis 1+; Ovalocytes Slight; Platelet Estimate Adequate; Segmented Neutrophils 85 % (50-85); Total Cells Counted 100
[2020-10-02 05:40] LABS: Ferritin 117.4 ng/ml (26-388)
[2020-10-02 05:42] LABS: Bilirubin,Total 0.7 MG/DL (0.20-1.00); Calcium 8.1 MG/DL (8.5-10.1); Potassium 5.1 MMOL/L (3.5-5.1); Total Protein 5.8 G/DL (6.4-8.2)
[2020-10-02] MEDS: MAGNESIUM OXIDE 400 MG TABLET PO SCH ×2 (11:08→21:10)
[2020-10-02] MEDS: CHOLECALCIFEROL 1,000 UNIT TABLET PO SCH (11:08)
[2020-10-02] MEDS: CETIRIZINE 10 MG TABLET PO SCH (11:09)
[2020-10-02] MEDS: BENZONATATE 100 MG CAPSULE PO SCH ×3 (11:09→21:09)
[2020-10-02] MEDS: RIVAROXABAN 20 MG TABLET PO SCH (11:09)
[2020-10-02] MEDS: ASPIRIN EC 81 MG TABLET PO SCH (11:09)
[2020-10-02] MEDS: FAMOTIDINE 20 MG TABLET PO SCH ×2 (11:09→21:09)
[2020-10-02] MEDS: carvediloL 6.25 MG TABLET PO SCH ×2 (11:09→21:07)
[2020-10-02] MEDS: ZINC GLUCONATE 50 MG TABLET PO SCH (11:09)
[2020-10-02] MEDS: ASCORBIC ACID 500 MG TABLET PO SCH ×2 (11:09→21:09)
[2020-10-02] MEDS: POTASSIUM CHLORIDE 20 MEQ TABLET PO SCH ×2 (11:12→21:08)
[2020-10-02] MEDS: DEXAMETHASONE 10 MG/1 ML VIAL IV SCH (13:54)
[2020-10-02] MEDS: cefTRIAXone 2,000 MG in SODIUM CHLORIDE 0.9% 100 ML IV SCH (14:00)
[2020-10-03 06:13] LABS: Basophils # 0.1 10*3/uL (0.0-0.2); Basophils % 0.6 % (0.0-0.8); Eosinophils % 0.1 % (0.00-10.9); Hematocrit 36.7 VOL% (42.0-52.0); Hemoglobin 11.8 GM/DL (14.0-18.0); Immature Granulocytes % 4.9 %; Immature Granulocytes Absolute 0.61 #; Lymphocytes # 1.5 10*3/uL (1.4-4.0); Mean Corpuscular HGB Conc 32.2 GM/DL (32-36); Mean Corpuscular Volume 96.6 FL (87-102); Mean Platelet Volume 10.9 FL (9.6-12.0); Monocytes % 2.5 % (1.7-12.7); NRBC # 0.05 10*3/uL; Neutrophils % 79.9 % (38.7-73.9); Platelet Count 521 T/CUMM (130-400); Red Cell Distribution Width 16.6 % (9.3-17.3); White Blood Count 12.4 T/CUMM (4-12)
[2020-10-03 06:29] LABS: Bilirubin,Total 0.4 MG/DL (0.20-1.00); Calcium 8.1 MG/DL (8.5-10.1); Osmolality,Calculated 278.7 MOS/KG (273-304); Potassium 4.4 MMOL/L (3.5-5.1); Total Protein 5.9 G/DL (6.4-8.2)
[2020-10-03 06:33] LABS: Ferritin 115.9 ng/ml (26-388)
[2020-10-03 07:08] LABS: Band Neutrophils 1 % (0-10); Burr Cells Slight; Hypochromasia Slight; Lymphocytes 10 % (20-55); Microcytosis Slight; Ovalocytes Slight; Platelet Estimate Increased; Segmented Neutrophils 83 % (50-85); Total Cells Counted 100
[2020-10-03] MEDS: ASPIRIN EC 81 MG TABLET PO SCH (09:01)
[2020-10-03] MEDS: FAMOTIDINE 20 MG TABLET PO SCH (09:01)
[2020-10-03] MEDS: MAGNESIUM OXIDE 400 MG TABLET PO SCH (09:02)
[2020-10-03] MEDS: ZINC GLUCONATE 50 MG TABLET PO SCH (09:02)
[2020-10-03] MEDS: BENZONATATE 100 MG CAPSULE PO SCH ×2 (09:02→14:12)
[2020-10-03] MEDS: carvediloL 6.25 MG TABLET PO SCH (09:03)
[2020-10-03] MEDS: ASCORBIC ACID 500 MG TABLET PO SCH (09:03)
[2020-10-03] MEDS: CETIRIZINE 10 MG TABLET PO SCH (09:03)
[2020-10-03] MEDS: POTASSIUM CHLORIDE 20 MEQ TABLET PO SCH ×2 (09:03→09:59)
[2020-10-03] MEDS: RIVAROXABAN 20 MG TABLET PO SCH (09:03)
[2020-10-03] MEDS: DEXAMETHASONE 10 MG/1 ML VIAL IV SCH (09:05)
[2020-10-03] MEDS: CHOLECALCIFEROL 1,000 UNIT TABLET PO SCH (09:08)
[2020-10-03 13:28] VITALS: BP 100/67
== END 2020-10-03 18:01 | disposition home or self-care (01) | DRG 177 ==
LOC: N.ED 10:46 → SUATTDRO 14:32 → N.EDINP 14:32 → N.2E 23:37
PROVIDERS: ADMIT Emergency Medicine; ATTEND Internal Medicine